=== PATIENT | male | born 1950 | race Caucasian/White ===

== ENCOUNTER 2022-07-21 15:29 | Outpatient (CLI) | payer MEDICARE | END 2022-07-21 15:30 | disposition home or self-care (01) | LOC: CSHMRI 15:29 | PROVIDERS: ATTEND Family Medicine | DX: M54.12 Radiculopathy, cervical region (principal); G89.4 Chronic pain syndrome; M43.6 Torticollis; M47.812 Spondylosis without myelopathy or radiculopathy, cervical region; M53.82 Other specified dorsopathies, cervical region | CPT/HCPCS: 72040; 72141 ==